=== PATIENT | male | born 1960 | race Caucasian/White ===

== ENCOUNTER 2023-08-14 05:25 | Emergency (ER) | payer OTHER ==
[2023-08-14 05:55] LABS: BASOPHILS PERCENT AUTO 0.7 % (0.0-1.0); EOSINOPHILS ABSOLUTE AUTO 0.4 K/mm3 (0.0-0.4); EOSINOPHILS PERCENT AUTO 9.8 % (0.0-6.0); HEMATOCRIT 27.1 % (42.0-52.0); HEMOGLOBIN 9.7 gm/dl (14.0-18.0); IMMATURE GRAN ABSOLUTE AUTO 0.02 K/mm3 (0.00-0.05); IMMATURE GRAN PERCENT AUTO 0.5 % (0.0-0.4); LYMPHOCYTES ABSOLUTE AUTO 1.8 K/mm3 (1.0-4.8); LYMPHOCYTES PERCENT AUTO 42.2 % (24.0-44.0); MEAN CORPUSCULAR HEMOGLOBIN 44.9 pg (28.0-32.0); MEAN CORPUSCULAR HGB CONC 35.8 g/dl (32.0-36.0); MEAN CORPUSCULAR VOLUME 125.5 fl (83.0-99.0); MEAN PLATELET VOLUME 10.5 fl (9.4-12.4); MONOCYTES ABSOLUTE AUTO 0.2 K/mm3 (0.0-0.8); MONOCYTES PERCENT AUTO 5.1 % (0.0-8.0); NEUTROPHILS ABSOLUTE AUTO 1.8 K/mm3 (1.8-7.7); NEUTROPHILS PERCENT AUTO 41.7 % (41.0-71.0); PLATELET COUNT,PLT 137 K/mm3 (150-400); RED BLOOD CELL COUNT 2.16 M/mm3 (4.52-5.90); WHITE BLOOD CELL COUNT,WBC 4.29 K/mm3 (3.9-11.3)
[2023-08-14 06:19] LABS: INR 0.99; PROTHROMBIN TIME 10.6 SECONDS (9.7-12.0)
[2023-08-14 06:21] LABS: PTT,PARTIAL THROMBOPLSTIN TIME 26.7 SECONDS (21.7-31.4)
[2023-08-14 06:31] LABS: SLIDE REVIEW ABNORMAL SMEAR
[2023-08-14 06:35] LABS: A/G RATIO 1.4 (1-2); ALBUMIN 3.5 g/dl (3.4-5.0); ANION GAP 14.7 (5-15); BILIRUBIN TOTAL 0.6 mg/dL (0.2-1.0); BUN/CREATININE RATIO 17.3 (14-18); CALCIUM 8.7 mg/dL (8.5-10.1); CREATININE 1.1 mg/dL (0.7-1.3); EST CRCL DRUG DOSING (CG) 71.89 mL/min; MAGNESIUM 2.1 mg/dL (1.8-2.4); PHOSPHORUS 3.7 mg/dL (2.6-4.7); POTASSIUM,K 4.7 mEq/L (3.5-5.1)
[2023-08-14 06:46] LABS: CORONAVIRUS COVID-19 NAA NEGATIVE (NEGATIVE); INFLUENZA A NAA NEGATIVE (NEGATIVE); RESPIRATORY SYNCYTIAL VIR NAA NEGATIVE (NEGATIVE)
[2023-08-14] MEDS: Aspirin 81 MG Tab.Chew PO ONE (06:55)
[2023-08-14] MEDS: Iopamidol 612 MG/ML 30 ML SDV IVPUSH ONE (07:36)
[2023-08-14] MEDS: Iopamidol 612 MG/ML 100 ML Bottle IVPUSH ONE (07:36)
[2023-08-14] MEDS: Ondansetron 4 MG/2 ML SDV IVPUSH ONE (07:39)
[2023-08-14] MEDS: Heparin Sodium 5,000 Units/ML Vial IVPUSH ONE (07:39)
[2023-08-14] MEDS: Heparin Sodium/D5W 25,000 UNITS/500 ML BAG IV SCH (07:41)
[2023-08-14] MEDS: Ondansetron 4 MG/2 ML SDV ONE (07:44)
== END 2023-08-14 08:17 ==
LOC: JD.ED 05:25
DX: S30.0XXA Contusion of lower back and pelvis, initial encounter (principal); S00.03XA Contusion of scalp, initial encounter; I21.4 Non-ST elevation (NSTEMI) myocardial infarction; R79.89 Other specified abnormal findings of blood chemistry; I10 Essential (primary) hypertension; F17.210 Nicotine dependence, cigarettes, uncomplicated; Z90.49 Acquired absence of other specified parts of digestive tract; W10.8XXA Fall (on) (from) other stairs and steps, initial encounter
CPT/HCPCS: 0241U; 36415; 70450; 71260; 72100; 72125; 74177; 80053; 80307; 83735; 84100; 84484; 85025; 85610; 85730; 93005; 96365; 96375; 99285; A9270; J1644; J2405; Q9967; 93010

== ENCOUNTER 2025-02-01 03:19 | Emergency (ER) | payer SELFPAY ==
[2025-02-01] MEDS ORDERED: Sodium Chloride 0.9% 10 ML Syringe FLUSH PRN (03:27)
[2025-02-01 03:34] LABS: BASOPHILS ABSOLUTE AUTO 0.1 K/mm3 (0.0-0.2); BASOPHILS PERCENT AUTO 1.0 % (0.0-1.0); EOSINOPHILS ABSOLUTE AUTO 0.5 K/mm3 (0.0-0.4); EOSINOPHILS PERCENT AUTO 5.5 % (0.0-6.0); IMMATURE GRAN ABSOLUTE AUTO 0.02 K/mm3 (0.00-0.05); IMMATURE GRAN PERCENT AUTO 0.2 % (0.0-0.4); LYMPHOCYTES ABSOLUTE AUTO 2.0 K/mm3 (1.0-4.8); LYMPHOCYTES PERCENT AUTO 23.4 % (24.0-44.0); MEAN PLATELET VOLUME 9.5 fl (9.4-12.4); MONOCYTES ABSOLUTE AUTO 0.7 K/mm3 (0.0-0.8); MONOCYTES PERCENT AUTO 8.4 % (0.0-8.0); NEUTROPHILS ABSOLUTE AUTO 5.3 K/mm3 (1.8-7.7); NEUTROPHILS PERCENT AUTO 61.5 % (41.0-71.0); NRBC ABSOLUTE 0.00 (0.00-0.02); NRBC PERCENT 0.0 % (0.0-0.2); PLATELET COUNT,PLT 261 K/mm3 (150-400); RED BLOOD CELL COUNT 4.98 M/mm3 (4.52-5.90); WHITE BLOOD CELL COUNT,WBC 8.65 K/mm3 (3.9-11.3)
[2025-02-01] MEDS: EPINEPHrine 1 MG/ML SDV IM ONE (03:34)
[2025-02-01] MEDS: methylPREDNISolone Sodium Succinate 125 MG/2 ML SDV IVPUSH ONE (03:35)
[2025-02-01] MEDS: Ampicillin/Sulbactam Na 3 GM in Sodium Chloride 0.9% 100 ML IV ONE (03:46)
[2025-02-01] MEDS: Iopamidol 612 MG/ML 100 ML Bottle IVPUSH ONE (03:56)
[2025-02-01 04:01] LABS: A/G RATIO 1.0 (1-2); ALANINE AMINOTRANSFERASE,ALT 23.0 U/L (16-63); ASPARTATE AMNIOTRANSFERASE,AST 45.0 U/L (15-37); BILIRUBIN TOTAL 0.8 mg/dL (0.2-1.0); BLOOD UREA NITROGEN,BUN 29.0 mg/dL (7-18); CARBON DIOXIDE,CO2 28.0 mEq/L (21-32); CHLORIDE,CL 103.0 mEq/L (98-107); CREATININE 1.3 mg/dL (0.7-1.3); EST CRCL DRUG DOSING (CG) 59.27 mL/min; ESTIMATED GFR 61.0 mL/min (>60); GLUCOSE RANDOM 122.0 mg/dL (70-99); POTASSIUM,K 4.2 mEq/L (3.5-5.1); PROTEIN TOTAL,TP 6.9 g/dl (6.4-8.2); SODIUM,NA 138.0 mEq/L (136-145)
[2025-02-01] MEDS: Lactated Ringers 1,000 ML IV ONE (04:28)
[2025-02-01] MEDS ORDERED: Ketamine 500 mg/10 ML MDV ONE (04:30)
[2025-02-01] MEDS ORDERED: Propofol 200 MG/20 ML SDV ONE (04:40)
[2025-02-01] MEDS ORDERED: Midazolam 1 MG/ML 2 ML SDV ONE (04:43)
[2025-02-01] MEDS ORDERED: Propofol 200 MG/20 ML SDV IVPUSH ONE (04:53)
[2025-02-01] MEDS: propofoL 1,000 MG/100 ML 100 ML IV SCH (05:01)
[2025-02-01] MEDS ORDERED: dexmedeTOMIDine HCl 200 MCG/2 ML SDV ONE (05:17)
[2025-02-01] MEDS ORDERED: Glycopyrrolate 0.2 MG/ML 2 ML SDV ONE (05:17)
[2025-02-01 05:35] LABS: O2 SATURATION ARTERIAL 98.8 % (96.0-97.0); PCO2 ARTERIAL 44.0 mmHg (35.0-45.0); PO2 ARTERIAL 92.0 mmHg (80.0-100.0)
[2025-02-01 05:36] LABS: BASE EXCESS ARTERIAL -0.8 (-2-2.0); BICARBONATE,ARTERIAL 24.9 meq/L (22.0-26.0)
[2025-02-01] MEDS: propofoL 1,000 MG/100 ML 100 ML ONE (05:36)
[2025-02-01 05:37] LABS: PATIENT RESPIRATORY RATE 15.0 /MIN
[2025-02-01] MEDS ORDERED: Naloxone 0.4 MG/ML SDV IVPUSH PRN (05:52)
[2025-02-01] MEDS: fentaNYL 100 MCG/2 ML SDV IVPUSH ONE ×2 (05:57→07:12)
[2025-02-01] MEDS ORDERED: propofoL 1,000 MG/100 ML 100 ML IV SCH (06:00)
[2025-02-01] MEDS: Midazolam 1 MG/ML 5 ML SDV IVPUSH ONE (06:23)
[2025-02-01 06:45] LABS: APPEARANCE,URINE CLEAR (Clear); GLUCOSE,URINE NEGATIVE (Negative); OCCULT BLOOD,URINE NEGATIVE (Negative)
== END 2025-02-01 07:30 ==
LOC: JD.ED 03:19
DX: T78.3XXA Angioneurotic edema, initial encounter (principal); I10 Essential (primary) hypertension; Z90.49 Acquired absence of other specified parts of digestive tract
CPT/HCPCS: 31500; 36415; 36600; 51702; 70491; 71045; 80053; 81003; 82803; 85025; 86140; 87040; 94640; 96365; 96366; 96367; 96368; 96372; 96375; 96376; 99152; 99153; 99291; 99292; A9270; J0169; J0295; J0598; J1596; J2003; J2250; J2704; J2919; J3010; J3490; J7030; J7040; J7120; Q9967

== ENCOUNTER 2025-03-06 01:17 | Emergency (ER) | payer SELFPAY ==
[2025-03-06 01:39] LABS: BASOPHILS ABSOLUTE AUTO 0.1 K/mm3 (0.0-0.2); BASOPHILS PERCENT AUTO 1.1 % (0.0-1.0); EOSINOPHILS ABSOLUTE AUTO 0.4 K/mm3 (0.0-0.4); EOSINOPHILS PERCENT AUTO 7.1 % (0.0-6.0); IMMATURE GRAN ABSOLUTE AUTO 0.02 K/mm3 (0.00-0.05); IMMATURE GRAN PERCENT AUTO 0.4 % (0.0-0.4); LYMPHOCYTES ABSOLUTE AUTO 1.6 K/mm3 (1.0-4.8); LYMPHOCYTES PERCENT AUTO 28.6 % (24.0-44.0); MEAN PLATELET VOLUME 9.5 fl (9.4-12.4); MONOCYTES ABSOLUTE AUTO 0.4 K/mm3 (0.0-0.8); MONOCYTES PERCENT AUTO 6.9 % (0.0-8.0); NEUTROPHILS ABSOLUTE AUTO 3.1 K/mm3 (1.8-7.7); NEUTROPHILS PERCENT AUTO 55.9 % (41.0-71.0); NRBC ABSOLUTE 0.00 (0.00-0.02); NRBC PERCENT 0.0 % (0.0-0.2); PLATELET COUNT,PLT 211 K/mm3 (150-400); RED BLOOD CELL COUNT 4.69 M/mm3 (4.52-5.90); WHITE BLOOD CELL COUNT,WBC 5.52 K/mm3 (3.9-11.3)
[2025-03-06 02:05] LABS: A/G RATIO 1.1 (1-2); ALANINE AMINOTRANSFERASE,ALT 11.0 U/L (16-63); ASPARTATE AMNIOTRANSFERASE,AST 11.0 U/L (15-37); BILIRUBIN TOTAL 0.4 mg/dL (0.2-1.0); BLOOD UREA NITROGEN,BUN 15.0 mg/dL (7-18); CARBON DIOXIDE,CO2 29.0 mEq/L (21-32); CHLORIDE,CL 105.0 mEq/L (98-107); CREATININE 1.1 mg/dL (0.7-1.3); EST CRCL DRUG DOSING (CG) 65.64 mL/min; ESTIMATED GFR 75.0 mL/min (>60); GLUCOSE RANDOM 108.0 mg/dL (70-99); POTASSIUM,K 3.9 mEq/L (3.5-5.1); PROTEIN TOTAL,TP 6.8 g/dl (6.4-8.2); SODIUM,NA 142.0 mEq/L (136-145)
[2025-03-06] MEDS: Iopamidol 612 MG/ML 100 ML Bottle IVPUSH ONE (02:14)
[2025-03-06] MEDS ORDERED: Sodium Chloride 0.9% Inhalation Soln 3 ML Neb INH PRN (02:56)
[2025-03-06] MEDS: Sodium Chloride 0.9% 10 ML Syringe FLUSH PRN (07:43)
[2025-03-06] MEDS: methylPREDNISolone Sodium Succinate 125 MG/2 ML SDV IVPUSH ONE (07:43)
[2025-03-07 10:49] LABS: COMPLEMENT ACTIVITY, TOTAL 83.6 U/mL (38.7-89.9)
[2025-03-07 15:48] LABS: C1 ESTERASE INHIB 34 mg/dL (21-38)
[2025-03-08 04:48] LABS: ANA BY ELISA, IGG W/RFLX IFA None Detected (None Detected)
== END 2025-03-06 08:25 | disposition left against medical advice (07) ==
LOC: JD.ED 01:17
DX: R06.02 Shortness of breath (principal); Z53.29 Procedure and treatment not carried out because of patient's decision for other reasons; I10 Essential (primary) hypertension; Z90.49 Acquired absence of other specified parts of digestive tract; Z79.899 Other long term (current) drug therapy; Z88.8 Allergy status to other drugs, medicaments and biological substances
CPT/HCPCS: 36415; 70491; 71046; 80053; 83735; 83880; 84484; 85025; 85379; 86038; 86140; 86160; 86162; 93005; 94640; 96374; 96375; 99285; J0598; J2919; J3490; Q9967; A9270-GY

== ENCOUNTER 2025-03-06 09:49 | Emergency (ER) | payer SELFPAY ==
[2025-03-06 11:10] LABS: TROPONIN I HIGH SENSITIVITY 335 pg/mL (<=76)
[2025-03-06] MEDS ORDERED: Heparin Sodium/D5W 250 ML IV SCH (12:00)
[2025-03-06] MEDS: Heparin Sodium 5,000 Units/ML Vial IVPUSH ONE (12:26)
[2025-03-06] MEDS: Heparin Sodium/D5W 250 ML IV SCH (12:27)
== END 2025-03-06 13:45 ==
LOC: JD.ED 09:49
DX: I21.4 Non-ST elevation (NSTEMI) myocardial infarction (principal); I10 Essential (primary) hypertension; Z86.16 Personal history of COVID-19; F17.200 Nicotine dependence, unspecified, uncomplicated; Z79.899 Other long term (current) drug therapy; Z88.8 Allergy status to other drugs, medicaments and biological substances
CPT/HCPCS: 36415; 83690; 84484; 96365; 99285; A9270; J1644; 93010